=== PATIENT | male | born 1955 | race Caucasian/White ===

== ENCOUNTER → 2016-11-13 | Outpatient (CLI) | payer OTHER ==
[~2016-11-13] MED LIST: CLRUNK PO; LISI-729 PO; NITR1CAP16 PO; OXYC-106 PO; TAMS0.4C59 PO; ZFRODT4 SL
== END | disposition home or self-care (01) ==
LOC: C.LAB 17:16
PROVIDERS: ATTEND Urology
DX: N40.0 Benign prostatic hyperplasia without lower urinary tract symptoms (principal)

== ENCOUNTER → 2017-11-23 | Outpatient (CLI) | payer OTHER ==
[~2017-11-23] MED LIST changes: -OXYC-106 PO; +OXYC10TA80 PO
--- NOTE | 2017-11-23 13:28 | DIAGNOSTIC IMAGING REPORT ---
[facility]UB CLINICAL HISTORY: 62 years-old Male presenting with N20.0 Nephrolithiasis. TECHNIQUE: Single supine view of the abdomen was obtained. COMPARISON: 04/16/2014. FINDINGS: Nonobstructive bowel gas pattern. No gross pneumoperitoneum. Punctate calcifications project over the bilateral kidneys, unchanged. At least 2 right renal calculi suggested and at least one left renal calculus. Calcifications in the pelvis likely phleboliths though one in the right hemipelvis is new from prior. Osseous structures normal. Lung bases clear. IMPRESSION: 1. Bilateral nephrolithiasis. 2. Questionable phlebolith versus distal right ureteral calculus from prior. Electronically signed by: Maxwell Saab M.D. 11/23/2017 1:27 PM Dictated Date/Time: 11/23/2017 1:24 PM
== END | disposition home or self-care (01) ==
LOC: C.RAD 12:46
PROVIDERS: ATTEND Urology
DX: N20.0 Calculus of kidney (principal); N40.0 Benign prostatic hyperplasia without lower urinary tract symptoms